=== PATIENT | male | born 1955 | race Caucasian/White ===

== ENCOUNTER 2020-02-08 15:20 | Emergency (ER) | payer OTHER, MEDICARE ==
[~2020-02-08] VITALS: Ht 180.3 cm; Wt 67.7 kg
[2020-02-08] MEDS ORDERED: ONDA4TAB6 PO (17:49)
[2020-02-08 18:10] VITALS: BP 111/85
== END 2020-02-08 18:11 | disposition home or self-care (01) ==
LOC: ER 15:21
DX: R06.02 Shortness of breath (principal); Z20.828 Contact with and (suspected) exposure to other viral communicable diseases; R50.9 Fever, unspecified; R11.0 Nausea; Z87.891 Personal history of nicotine dependence
CPT/HCPCS: 36415; 71045; 87635; 99284